=== PATIENT | male | born 1940 | race Caucasian/White ===

== ENCOUNTER 2016-11-07 11:30 | Outpatient (RCR) | payer MEDICARE ==
--- NOTE | 2016-09-09 13:50 | PT/OT/ST INITIAL EVALUATION ---
Department of Health and Human Services Form Approved Health Care Financing Administration OMB No. [id number] PLAN OF CARE/ASSESSMENT FOR OUTPATIENT REHABILITATION (Complete for Initial Claims Only) 1. LAST NAME Brenton Brantley FIRST NAME Mirza Kemp 2. ACC # [id number] 3. [place] [id number] 4. PROVIDER NO. [id number] 5. TYPE: X PT 6. PRIOR THERAPY (Same condition) None for this condition. The patient was in earlier in 2015 for his right shoulder for reverse total shoulder replacement and he was at the [facility] for that therapy. 7. PRIOR HOSPITALIZATION NA 8. PRIMARY DX Right hip partial replacement 9. SECONDARY DX Right hip pain, right anterior thigh pain, difficulty walking, and weakness and right hip stiffness. 10. ONSET DATE 08/25/2016 11. REFERRAL DATE 08/31/2016 12. SOC. DATE/TIME 09/08/2016 11:36 a.m. to 12.36 p.m. 13. CHARGES PT evaluation 08486 Therapeutic exercise 97300, 2 units. Vasopneumatic device 20918, 1 unit 14. G. CODES Lower extremity functional scale rates the patient as N2251-DU 62.5% limited and the goal is O8056-BG 0% limited in order to ambulate without assistive device and without loss of balance for returning to walking for exercise with proper gait pattern. 15. PRIOR LEVEL OF FUNCTION; PERTINENT HISTORY (Prior therapy results, reason for referral.) S: Prior to therapy the patient consented to today's evaluation and treatment. The patient is a 75-year-old male referred to physical therapy by Dr. Thakur to address functional limitations secondary to right hip partial replacement. Mechanism of injury: The patient reports that he thinks he had his right hip partial replacement on 08/25/2016. He states that he had fallen at home in the garage. He tripped over something and he landed on his entire right side. Occupational and social history: The patient is retired. Functional performance/Prior level of function: The patient currently has trouble sleeping and can sleep for about 2 hours before waking. Prior to the injury, the patient was doing well and did not have trouble with ambulating or other lower extremity activity. The patient rates the current pain level as 3/10 and up to 8/10 at night. The patient describes the pain as a constant "knife" at the pivot point of his hip and into the front of his right leg. Obstacles to delivery of care: None noted. Aggravating factors include Climbing stairs. Relieving factors: Include walking around, sitting in his recliner and pain pills. The patient was educated to try icing his right hip. Diagnostic testing: No results of any diagnostic testing in the chart. The patient reported that due to the fall, he had cracked the ball of his femur leading to the partial hip replacement. 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 Past surgical history includes having his right reverse total shoulder and is doing well. Gallbladder removed, previous surgery on his back, previous surgery on his neck and lymph nodes removed. Current medications: Include Xarelto, Tylenol, zolpidem, sertraline, morphine, amitriptyline, nitroglycerin, acyclovir, potassium chloride, furosemide, Lisinopril. Leisure activities: Not listed. Activity level: Not listed. Health rating: The patient has a health rating that is good. The patient's goal for physical therapy is to get back to normal. 16. INITIAL ASSESSMENT/SAFETY PRECAUTIONS/MEDICAL COMPLICATIONS (Level of function at start of care. Be specific, use objective measures, list problems.) O: APPEARANCE, OBSERVATION AND GAIT: The patient presents to the clinic using a single-point cane on his right side. He states that he tends to switch his cane from side to side. The patient reports that he does have trouble sleeping and he likes to sleep on his side and is not able to sleep on his right side. The patient stated that he does use a pillow between his knees that does come down close to his ankles while lying on his left side. It was recommended the patient try putting a pillow between both knees and ankles, as well as possibly propping pillows up behind him while lying on his left side so that he can roll back and be supported and try a slightly different position. The patient was educated and taught how to ambulate with cane in left hand. The patient did not require any assistance and was able to move from sit to supine and supine to sit. PALPATION: The patient was not significantly tender along the right hip. The patient still has an Aquacel bandage intact. SPECIAL TESTS: None RANGE OF MOTION/FLEXIBILITY: The patient did heel-slides with hip flexion remaining less than 90 degrees in a supine position. The patient was able to state the hip precautions. The patient, in a standing position, was able to move the right hip into flexion, abduction and extension, however, extension was approximately 10 degrees. Abduction flexion is approximately 20 degrees. STRENGTH: Manual muscle test of the hips -left hip flexion, abduction and extension were 4/5. Right hip upon observation, flexion, abduction and extension 2+/5. TODAY'S TREATMENT: Included the initial PT evaluation followed by therapeutic exercise and vasopneumatic device. 17. TREATMENT DX (If different from medical DX) Right hip pain, right anterior thigh pain, right hip stiffness, difficulty walking and weakness. 18. DATE OF ASSESSMENT: 09/08/2016 19. 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 The patient would benefit from physical therapy in order to gain strength and range of motion within precautions in order to be able to return to ambulating without an assistive device and without loss of balance and to be able to gain strength to perform activities, such as squatting and ascending and descending stairs and ambulating without deviation. PROGNOSIS: The patient has a good prognosis for increased overall functional capacity with regular therapy attendance and compliance with prescribed home exercise program. CONTRAINDICATIONS, PRECAUTIONS AND OBSTACLES: Due to the patient's history of having cancer, he is not to have ultrasound. The patient also had a right reverse total shoulder replacement in 2016 and should not perform any significant weightbearing or internal rotation behind the body with the right shoulder. GOALS: 1. The patient was rated by the lower extremity functional scale as G7418-Xx 62.5% limited and the goal is G4120-HV 0% limited in order to be able to ambulate with proper gait pattern and without loss of balance without an assistive device. 2. The patient is to have a decrease in pain of his right hip to less than or equal to 2/10 in 6 weeks in order to be able to ambulate without deviation and without assistive device for return to normal activity and to be able to sleep through the night without being woken up by hip pain. 3. The patient is to have an increase in manual muscle testing of the right hip to 4+/5 in 6 weeks in order to be able to ascend and descend steps and get in and out of bed without deviation. 4. The patient is to be independent with progressive home exercise program The prognosis and goals were discussed with the patient, as well as the expected outcome and possible risks. The patient agreed to undergo PT evaluation and further treatment. P: Plan to treat this patient 2 times a week for 6 weeks to address functional limitations secondary to right partial hip replacement including right hip pain, right anterior thigh pain, right hip stiffness, difficulty walking, and weakness. Treatment to include modalities for pain and inflammation, manual therapy interventions, therapeutic exercise, active and passive range of motion, gait training, balance training, neural reeducation and patient education and prescription of progressive home exercise program as tolerable. 20. FUNCTIONAL LEVEL (End of claim period) 21. PHYSICIAN SIGNATURE ? ON FILE OR ENTER HERE: 22. DATE: I certify the need for these services furnished under this plan of care and if for partial hospitalization. 23. CERTIFICATION FROM THROUGH FORM [id number]
[~2016-11-07 11:30] MED LIST: ACET325T38 PO; ACYC400T PO; ALLO100T PO; AMIT25TA9 PO; ASPI-479 PO; ATN25T PO; ATOR10TA PO; CALC-671 PO; CARB1TAB6 PO; CIPR500S2 PO; CLOP75TA3 PO; CYAN10006 PO; FISH OIL500 M1 PO; FOLATE PO; FURO-125 PO; FURO20TA4 PO; FURO40TA4 PO; INUL197. PO; IRON PO; KCL20TCR PO; LACT1CAP62 PO; LISI1TAB6 PO; LISI5TAB14 PO; LOPE1LIQ7 PO; MECL-105 PO; MORP30TA PO; MULT-593 PO; NITR0.4T7 SL; POTA20TA15 PO; POTA20TA7 PO; SPRN25T PO; SRTR100T PO; VENL75TA6 PO; VENL75TA62 PO; ZLP10T PO; ZOLP10TA PO; vit b 12
== END 2016-11-20 09:16 | disposition home or self-care (01) ==
LOC: PT 11:30
PROVIDERS: ATTEND Orthopaedic Surgery
DX: Z96.641 Presence of right artificial hip joint (principal); Z98.890 Other specified postprocedural states; M25.551 Pain in right hip; M25.651 Stiffness of right hip, not elsewhere classified; R26.2 Difficulty in walking, not elsewhere classified
CPT/HCPCS: 97001; 97016; 97110; G8978; G8979

== ENCOUNTER → 2016-12-15 | Outpatient (CLI) | payer OTHER, MEDICARE ==
[2016-12-15 11:38] LABS: MEAN CORPUSCULAR HEMOGLOBIN 29.7 PG (26.0-34.0); MEAN CORPUSCULAR HGB CONC 33.5 g/dL (31.0-37.0); MEAN CORPUSCULAR VOLUME 89 FL (80-100); MEAN PLATELET VOLUME 9.4 FL (6.0-9.5); PLATELET COUNT 168 10^3uL (150-450); WHITE BLOOD COUNT 3.88 10^3uL (4.0-11.0)
[2016-12-15 12:24] LABS: ALBUMIN 3.5 g/dL (3.4-5.0); ANION GAP 14.5 MEQ/L (3-15); BAND NEUTROPHILS % 0 % (0-6); CALCULATED IONIZED CALCIUM 4.3 mg/dL (3.8-4.6); EOSINOPHILS % 4 % (0-4); LYMPHOCYTES # 0.9 #; MAGNESIUM* 1.8 mg/dL (1.6-2.3); MONOCYTES % 0 % (3-11); PHOSPHORUS 3.4 mg/dL (2.4-4.9); RBC MORPH NORMAL (NORMAL); SEGMENTED NEUTROPHILS % 73 % (51-67); TOTAL CELLS COUNTED 100; TOTAL PROTEIN 6.2 g/dL (6.4-8.5)
[2016-12-15 19:08] LABS: IRON 51 ug/dL (65-175); UNBOUND IRON CONTENT 173 ug/dl (126-382)
== END ==
LOC: LAB 11:17
PROVIDERS: ATTEND Internal Medicine Hematology & Oncology
DX: C91.10 Chronic lymphocytic leukemia of B-cell type not having achieved remission (principal)
CPT/HCPCS: 36415; 80053; 82728; 83540; 83550; 83615; 83735; 84100; 85007; 85027